=== PATIENT | female | born 1950 | race Caucasian/White ===

== ENCOUNTER 2016-07-29 06:14 | Day surgery (SDC) | payer BC ==
[2016-07-24 13:23] LABS: HEMOGLOBIN 14.1 g/dL (12.0-16.0)
[2016-07-24 13:24] LABS: HEMATOCRIT 41.6 % (36.0-48.0)
[2016-07-24 13:32] LABS: ASCORBIC ACID (UR NOT ORDER) NEG (NEG); BILIRUBIN, URINE NEGATIVE (NEG); KETONE, URINE NEGATIVE (NEG)
[2016-07-24 13:40] LABS: BUN (BLOOD UREA NITROGEN) 19 MG/DL (6-23); CALCIUM, SERUM 9.5 MG/DL (8.5-10.4); CHLORIDE, SERUM 101 MMOL/L (96-112); CO2 (CARBON DIOXIDE) 29 MMOL/L (24-34); CREATININE 0.92 MG/DL (0.55-1.02); GFR AFRICAN AMERICAN 76 ML/MIN (>=60); GFR NON AFRICAN AMERICAN 66 ML/MIN (>=60); GLUCOSE, SERUM 197 MG/DL (60-99); POTASSIUM, SERUM 5.3 MMOL/L (3.5-5.3); SODIUM, SERUM 139 MMOL/L (135-148)
--- NOTE | ~2016-07-29 | OP ---
Record Of Operation [facility] [address] [place]. [address] NAME: FRANKY RODRIGUEZ : 52 STATUS : REG [facility]#: [id number] AGE: 65 ADM/REG DATE : 07/29/16 MR#: [id number] REPORT SERV DATE: 07/29/16 DICTATED BY: ANNY AVALOS DATE: 07/29/16 REPORT STATUS : Draft TRANSCRIBED BY: MODL DATE: 07/29/16 DATE OF PROCEDURE: 07/29/2016 TITLE OF OPERATION: Cystourethroscopy, bilateral retrograde pyelograms, transurethral resection of bladder tumor less than 2 cm, intravesical instillation of mitomycin chemotherapy. PREOPERATIVE DIAGNOSIS: Bladder cancer. POSTOPERATIVE DIAGNOSIS: Bladder cancer. INDICATIONS: Ms. Rodriguez is a 65-year-old female with hematuria. She is found have a bladder tumor on office cystoscopy. She is here for transurethral resection of bladder tumor. ANESTHESIA: General. COMPLICATIONS: None. IMPLANTS: A 16-Comoran Quezada catheter. SPECIMEN: Bladder tumor. NARRATIVE: The patient was brought to the operating room, identified by wristband. General anesthesia was induced. Ancef was given for preoperative antibiotics. She was placed in dorsal lithotomy position, prepped and draped in sterile fashion. A cystoscope was placed into her urethra and into her bladder. The bladder was inspected. There was a 2 cm tumor on the right lateral wall of the bladder. The rest of the bladder was clear. A 5-Comoran open-ended catheter was placed into the distal right ureter. Retrograde pyelogram was shot, which demonstrated normal ureter and normal upper tract system, no hydronephrosis or lesions. Similarly on the left side, a 5-Comoran open-ended catheter was advanced into the distal left ureter. Retrograde pyelogram was shot, which demonstrated normal ureter and normal upper tract anatomy. The scope was then removed. A 24-Comoran resectoscope was placed into her urethra with the aid of an obturator. The tumor on the right lateral wall of the bladder which was 2 cm in size, it was resected to its base. Muscle appeared to be present. Hemostasis was obtained with electrocautery. The specimen was removed from the bladder. This was sent to pathology for permanent analysis. A 16-Comoran Quezada catheter was placed into her bladder. A 40 mg of mitomycin was placed into her bladder and the Quezada catheter was capped. This remained in her bladder for two hours, at which time the mitomycin was drained, disposed, and her Quezada catheter removed. I will call her with the pathology. There were no complications. ZULEMA/SOL Anny Narvaez Record Of Operation [address] [address] NAME: FRANKY RODRIGUEZ : 52 STATUS : REG [facility] [place] PAT#: [id number] AGE: 65 ADM/REG DATE : 07/29/16 MR#: [id number] REPORT SERV DATE: 07/29/16 DICTATED BY: ANNY AVALOS DATE: 07/29/16 REPORT STATUS : Draft TRANSCRIBED BY: SOL DATE: 07/29/16 MD Martinez / [id number] CC: MD Rodrigue Rodriguez M.D.
[~2016-07-29 06:14] MED LIST: FORTAMET500 MG PO; HALF81 PO; KLONO5 PO; L40 PO; LISINOPRIL40 MG PO; NEUR100 PO; NORV5 PO; PROZAC PO; ULTRAM50 PO; VASOTEC20 MG PO
== END 2016-07-29 15:23 | disposition home or self-care (01) ==
LOC: SDC 06:14
PROVIDERS: Urology
PROC: 3E0K805 Introduction of Other Antineoplastic into Genitourinary Tract, Via Natural or Artificial Opening Endoscopic (ICD-10-PCS; 2016-07-29)
PROC: BT14ZZZ Fluoroscopy of Kidneys, Ureters and Bladder (ICD-10-PCS; principal; 2016-07-29 07:45)
PROC: 0TBB8ZX Excision of Bladder, Via Natural or Artificial Opening Endoscopic, Diagnostic (ICD-10-PCS; 2016-07-29 07:45)
DX: C67.2 Malignant neoplasm of lateral wall of bladder (principal); I10 Essential (primary) hypertension; E11.9 Type 2 diabetes mellitus without complications; F41.9 Anxiety disorder, unspecified; F32.9 Major depressive disorder, single episode, unspecified; N20.0 Calculus of kidney; E66.9 Obesity, unspecified; Z68.32 Body mass index [BMI] 32.0-32.9, adult; Z86.73 Personal history of transient ischemic attack (TIA), and cerebral infarction without residual deficits; Z79.82 Long term (current) use of aspirin; Z79.84 Long term (current) use of oral hypoglycemic drugs; Z79.2 Long term (current) use of antibiotics; Z79.899 Other long term (current) drug therapy; Z90.49 Acquired absence of other specified parts of digestive tract; Z87.891 Personal history of nicotine dependence; Z86.010 Personal history of colon polyps; Z98.890 Other specified postprocedural states
CPT/HCPCS: 36415; 74420; 80048; 81001; 82962; 85014; 85018; 87086; 88307; 93005; C1758; J0690; J1580; J2250; J2405; J3010; J9280; Q9967